=== PATIENT | female | born 1990 | race Caucasian/White ===

== ENCOUNTER 2017-01-01 09:08 | Inpatient (IN) | payer BC, OTHER ==
[~2017-01-01] VITALS: Ht 167.6 cm; Wt 72.6 kg
[~2017-01-01 09:08] MED LIST: CYCLOBENZAPRINE10 MG PO; HYDROCODON-ACE1 EAC1 PO; YAZ PO
[2017-01-01 09:15] VITALS: BP 151/98
[2017-01-01 09:30] LABS: URINE BILIRUBIN NEGATIVE (Negative); URINE BLOOD NEGATIVE (Negative); URINE COLOR YELLOW; URINE GLUCOSE-RANDOM* NEGATIVE (Negative); URINE KETONES NEGATIVE (Negative); URINE NITRITE NEGATIVE (Negative); URINE PROTEIN (DIPSTICK) TRACE (Negative); URINE UROBILINOGEN 0.2 E.U./dl (0.2-1.0)
[2017-01-01 09:56] LABS: BASOPHILS 0.5 % (0.0-2.0); EOSINOPHILS 0.3 % (0.0-3.0); HEMATOCRIT 43.2 % (37.0-47.0); HEMOGLOBIN 14.3 gm/dL (12.0-15.0); LYMPHOCYTES 16.6 % (24.0-44.0); MCH 28.9 pg (26.0-34.0); MCV 87.4 fL (80.0-100.0); MONOCYTES 2.9 % (1.0-8.0); PLATELET COUNT 231 thou/uL (150-400); POLYS 79.7 % (36.0-66.0); RBC 4.94 mil/uL (4.20-5.00); RDW 12.4 % (10.5-14.5); WBC 15.1 thou/uL (4.0-11.0)
[2017-01-01 10:00] LABS: MANUAL DIFF NO
[2017-01-01 10:06] LABS: CALCIUM 9.2 mg/dL (8.5-10.1); CREATININE 0.8 mg/dL (0.6-1.0); POTASSIUM 3.6 mmol/L (3.5-5.1)
[2017-01-01 10:12] LABS: ALBUMIN 3.8 g/dL (3.4-5.0); TOTAL BILIRUBIN 0.3 mg/dL (<0.1-1.0); TOTAL PROTEIN 7.8 g/dL (6.4-8.2)
[2017-01-01 12:34] VITALS: BP 126/72
[2017-01-01 12:41] VITALS: BP 139/98
[2017-01-01 12:58] VITALS: BP 141/89
[2017-01-01 20:00] VITALS: BP 125/83
[2017-01-02 04:00] VITALS: BP 108/60
[2017-01-02 06:18] LABS: HEMATOCRIT 39.8 % (37.0-47.0); MCH 28.8 pg (26.0-34.0); MCHC 32.7 g/dL (28.0-37.0); RBC 4.52 mil/uL (4.20-5.00); RDW 12.2 % (10.5-14.5)
[2017-01-02 08:00] VITALS: BP 126/70
[2017-01-02] MEDS ORDERED: ZOFRAN ODT4 MG PO (09:18)
[2017-01-02 09:45] VITALS: BP 126/70
[2017-01-02 09:49] VITALS: BP 126/70
== END 2017-01-02 12:17 | disposition home or self-care (01) | DRG 392 ==
LOC: ER 09:08 → EROBS 11:33 → 4N 11:33
PROVIDERS: Hospitalist; Physician Assistant
DX: K29.70 Gastritis, unspecified, without bleeding (principal); S09.90XA Unspecified injury of head, initial encounter; K21.9 Gastro-esophageal reflux disease without esophagitis; J45.909 Unspecified asthma, uncomplicated; Z88.1 Allergy status to other antibiotic agents; D72.829 Elevated white blood cell count, unspecified; W19.XXXA Unspecified fall, initial encounter; Y93.89 Activity, other specified; Y92.89 Other specified places as the place of occurrence of the external cause; Y99.8 Other external cause status
CPT/HCPCS: 10091